=== PATIENT | female | born 2000 | race African-American/Black ===

== ENCOUNTER 2020-02-22 20:45 | Observation (INO) | payer OTHER ==
[~2020-02-22] VITALS: Ht 160 cm; Wt 112.3 kg
[2020-02-22 21:58] LABS: HEMATOCRIT 38.4 % (35.0-45.0); HEMOGLOBIN 11.9 g/dL (12.0-15.0); MEAN CELL VOLUME 74 fl (78-95); MEAN CORPUSCULAR HGB CONC 31 g/dL (33-37); MEAN PLATELET VOLUME 9.6 fl (7.4-10.4); PLATELET COUNT 337 K/mm3 (130-400); RED BLOOD COUNT 5.21 M/mm3 (4.10-5.30); RED CELL DISTRIBUTION WIDTH 14.6 % (11.5-14.5); WHITE BLOOD COUNT 16.1 K/mm3 (4.8-10.8)
[2020-02-22 22:07] LABS: MEAN CORPUSCULAR HEMOGLOBIN 23 pg (26-32)
[2020-02-22 22:11] LABS: ALBUMIN 4.4 g/dL (3.5-5.0); POTASSIUM 4.3 mmol/L (3.5-5.1)
[2020-02-22 22:12] LABS: CALCIUM 9.8 mg/dL (8.3-10.5)
[2020-02-22 22:14] LABS: TOTAL PROTEIN 7.5 g/dL (6.4-8.3)
[2020-02-22 22:15] LABS: TOTAL BILIRUBIN 0.4 mg/dL (0.2-1.2)
[2020-02-22 22:26] LABS: BAND 16 % (0-10); NEUTROPHILS 71 % (42-75)
[2020-02-22 22:27] LABS: LYMPHOCYTE 9 % (20-51); MONOCYTE 4 % (1-10); POLYCHROMASIA 1+
[2020-02-22 22:28] LABS: HYPOCHROMIA 1+; MICROCYTOSIS 2+; OVALOCYTES 1+
[2020-02-22] MEDS ORDERED: TRUE METRIX GL1 EACH (22:33)
[2020-02-22] MEDS ORDERED: GLUCOPHAGE PO (22:34)
[2020-02-22] MEDS ORDERED: SINGULAIR 110 MG/TAB PO (22:35)
[2020-02-22 22:36] LABS: URINE APPEARANCE CLOUDY; URINE BILIRUBIN NEGATIVE (NEGATIVE); URINE BLOOD 50 ery/uL (NEGATIVE); URINE COLOR YELLOW; URINE GLUCOSE NEGATIVE (NEGATIVE); URINE KETONE NEGATIVE (NEGATIVE); URINE LEUKOCYTE ESTERASE 1+ (NEGATIVE); URINE MUCUS PRESENT (NOT PRESENT); URINE NITRATE NEGATIVE (NEGATIVE); URINE PROTEIN(semi-quant) TRACE mg/dL (NEGATIVE); URINE UROBILINOGEN NORMAL (NORMAL)
[2020-02-22] MEDS ORDERED: OXCARBAZEPINE600 M1 PO (22:36)
[2020-02-22] MEDS ORDERED: LOSARTAN POTASS50 M1 PO (22:37)
[2020-02-22 22:39] LABS: LIPASE 27 U/L (8-78)
[2020-02-23] VITALS (7 sets, daily range): BP systolic 109–153; BP diastolic 68–89
[2020-02-23 01:31] LABS: PROTHROMBIN TIME 9.9 SECONDS (9.0-12.0)
[2020-02-23 06:38] LABS: EOS # 0.4 (0.04-0.40); EOS % 3.5 % (0.1-4.0); HEMATOCRIT 34.2 % (35.0-45.0); HEMOGLOBIN 10.3 g/dL (12.0-15.0); MEAN CELL VOLUME 74 fl (78-95); MEAN CORPUSCULAR HGB CONC 30 g/dL (33-37); MEAN PLATELET VOLUME 9.8 fl (7.4-10.4); MONO # 0.8 (0.10-0.60); NEU # 6.8 (1.40-6.50); PLATELET COUNT 339 K/mm3 (130-400); RED BLOOD COUNT 4.61 M/mm3 (4.10-5.30); RED CELL DISTRIBUTION WIDTH 14.6 % (11.5-14.5)
[2020-02-23 07:08] LABS: MEAN CORPUSCULAR HEMOGLOBIN 22 pg (26-32)
[2020-02-23 08:35] LABS: ERYTHROCYTE SEDIMENTATION RATE 23 mm/hr (0-20)
[2020-02-23 09:34] LABS: ALBUMIN 3.8 g/dL (3.5-5.0); POTASSIUM 4.2 mmol/L (3.5-5.1)
[2020-02-23 09:37] LABS: TOTAL PROTEIN 6.6 g/dL (6.4-8.3)
[2020-02-23 09:39] LABS: TOTAL BILIRUBIN 0.3 mg/dL (0.2-1.2)
[2020-02-23 09:42] LABS: CALCIUM 9.3 mg/dL (8.3-10.5)
[2020-02-23 09:49] LABS: DIRECT BILIRUBIN 0.1 mg/dL (0.0-0.5)
[2020-02-23 10:22] LABS: URINE APPEARANCE CLOUDY; URINE BILIRUBIN NEGATIVE (NEGATIVE); URINE BLOOD NEGATIVE (NEGATIVE); URINE COLOR YELLOW; URINE GLUCOSE NEGATIVE (NEGATIVE); URINE KETONE NEGATIVE (NEGATIVE); URINE LEUKOCYTE ESTERASE 1+ (NEGATIVE); URINE MUCUS PRESENT (NOT PRESENT); URINE NITRATE NEGATIVE (NEGATIVE); URINE PROTEIN(semi-quant) 1+ mg/dL (NEGATIVE); URINE UROBILINOGEN NORMAL (NORMAL)
[2020-02-24 01:25] VITALS: BP 116/57
[2020-02-24 05:21] VITALS: BP 140/80
[2020-02-24 09:31] LABS: EOS # 0.5 (0.04-0.40); EOS % 5.1 % (0.1-4.0); HEMATOCRIT 35.2 % (35.0-45.0); HEMOGLOBIN 10.4 g/dL (12.0-15.0); LYMPH# 3.4 (1.20-3.40); MEAN CELL VOLUME 75 fl (78-95); MEAN CORPUSCULAR HGB CONC 30 g/dL (33-37); MEAN PLATELET VOLUME 9.9 fl (7.4-10.4); MONO # 0.4 (0.10-0.60); NEU # 4.7 (1.40-6.50); PLATELET COUNT 295 K/mm3 (130-400); RED BLOOD COUNT 4.68 M/mm3 (4.10-5.30); RED CELL DISTRIBUTION WIDTH 14.8 % (11.5-14.5); WHITE BLOOD COUNT 9.1 K/mm3 (4.8-10.8)
[2020-02-24 09:32] LABS: ALBUMIN 3.9 g/dL (3.5-5.0); POTASSIUM 3.9 mmol/L (3.5-5.1)
[2020-02-24 09:33] LABS: CALCIUM 9.3 mg/dL (8.3-10.5)
[2020-02-24 09:34] LABS: TOTAL PROTEIN 6.7 g/dL (6.4-8.3)
[2020-02-24 09:36] LABS: TOTAL BILIRUBIN 0.2 mg/dL (0.2-1.2)
[2020-02-24 09:48] VITALS: BP 153/96
[2020-02-24 09:50] LABS: MEAN CORPUSCULAR HEMOGLOBIN 22 pg (26-32)
[2020-02-24 14:11] VITALS: BP 151/92
[2020-02-24] MEDS ORDERED: ZOFRAN8 MG PO (17:15)
[2020-02-24] MEDS ORDERED: ROXICODONE5 M1 PO (17:17)
[2020-02-24 18:06] VITALS: BP 153/96
[2020-02-24 19:07] LABS: HEPATITIS C ANTIBODY Negative (Negative)
== END 2020-02-24 18:02 | disposition home or self-care (01) ==
LOC: ED 20:45 → MED/SURG 02-23 00:51
PROVIDERS: Internal Medicine; Nurse Practitioner; ADMIT Family Medicine
DX: R10.30 Lower abdominal pain, unspecified (principal); K76.89 Other specified diseases of liver; E11.9 Type 2 diabetes mellitus without complications; I10 Essential (primary) hypertension; E66.01 Morbid (severe) obesity due to excess calories; D64.9 Anemia, unspecified; R56.9 Unspecified convulsions; Z11.59 Encounter for screening for other viral diseases; Z79.899 Other long term (current) drug therapy; Z79.84 Long term (current) use of oral hypoglycemic drugs
CPT/HCPCS: C9113; G0378; J1885; J2405; J3010; J7030; Q9967

== ENCOUNTER → 2022-06-21 | Outpatient (CLI) | payer OTHER ==
[~2022-06-21] VITALS: Ht 160 cm; Wt 119.7 kg
[~2022-06-21] MED LIST: CLARITIN10 M1 PO; GLUCOPHAGE PO; LOSARTAN POTASS50 M1 PO; OXCARBAZEPINE600 M1 PO; ROXICODONE5 M1 PO; SINGULAIR 110 MG/TAB PO; TRUE METRIX GL1 EACH; VICTOZA 3-0.6 MG/0.1 SQ; ZOFRAN8 MG PO
[2022-06-21 17:31] VITALS: BP 145/90
[2022-06-21 17:53] LABS: HEMATOCRIT 40.1 % (37.0-47.0); HEMOGLOBIN 12.6 g/dL (12.5-16.0); MEAN PLATELET VOLUME 10.8 fl (7.4-10.4); RED BLOOD COUNT 5.44 M/mm3 (4.10-5.30); RED CELL DISTRIBUTION WIDTH 14.1 % (11.5-14.5); WHITE BLOOD COUNT 11.8 K/mm3 (4.8-10.8)
[2022-06-21 18:31] LABS: ALBUMIN 3.9 g/dL (3.5-5.0); POTASSIUM 4.4 mmol/L (3.5-5.1)
[2022-06-21 18:33] LABS: CALCIUM 9.4 mg/dL (8.3-10.5)
[2022-06-21 18:34] LABS: TOTAL PROTEIN 6.9 g/dL (6.4-8.3)
[2022-06-21 18:40] LABS: TOTAL BILIRUBIN 0.1 mg/dL (0.2-1.2)
== END ==
LOC: AMSURD 16:56
PROVIDERS: Physician Assistant
DX: R19.7 Diarrhea, unspecified (principal); R11.10 Vomiting, unspecified
CPT/HCPCS: J2405; J7030

== ENCOUNTER → 2023-06-26 | Outpatient (CLI) | payer OTHER | LOC: RAD 10:21 | DX: M79.675 Pain in left toe(s) (principal) ==

== ENCOUNTER 2024-11-26 14:02 | Emergency (ER) | payer OTHER ==
[~2024-11-26] VITALS: Ht 157.5 cm; Wt 126.4 kg
[2024-11-26] MEDS ORDERED: NS 1,000 ML IV SCH (14:15)
[2024-11-26] MEDS ORDERED: Ondansetron 4 MG/2 ML VIAL IV ONE ×2 (14:15→17:30)
[2024-11-26 14:30] LABS: URINE APPEARANCE CLOUDY (CLEAR); URINE BILIRUBIN NEGATIVE (NEGATIVE); URINE BLOOD 2+ (NEGATIVE); URINE COLOR YELLOW (YELLOW); URINE GLUCOSE 3+ (NEGATIVE); URINE KETONE 2+ (NEGATIVE); URINE LEUKOCYTE ESTERASE NEGATIVE (NEGATIVE); URINE MUCUS PRESENT (NOT PRESENT); URINE NITRATE NEGATIVE (NEGATIVE); URINE PROTEIN(semi-quant) 2+ (NEGATIVE); URINE WBC >50 /hpf (0-3)
[2024-11-26 14:34] LABS: HEMOGLOBIN 12.1 g/dL (12.5-16.0); MEAN CELL VOLUME 73 fl (78-100); MEAN CORPUSCULAR HEMOGLOBIN 23 pg (27-31); MEAN CORPUSCULAR HGB CONC 31 g/dL (33-37); MEAN PLATELET VOLUME 10.7 fl (7.4-10.4); PLATELET COUNT 269 K/mm3 (130-400); RED BLOOD COUNT 5.36 M/mm3 (4.10-5.30); RED CELL DISTRIBUTION WIDTH 13.9 % (11.5-14.5); WHITE BLOOD COUNT 15.8 K/mm3 (4.8-10.8)
[2024-11-26 14:39] LABS: ALBUMIN 4.1 g/dL (3.5-5.0)
[2024-11-26 14:40] LABS: CALCIUM 10.1 mg/dL (8.3-10.5)
[2024-11-26 14:41] LABS: TOTAL PROTEIN 8.2 g/dL (6.4-8.3)
[2024-11-26 14:43] LABS: TOTAL BILIRUBIN 0.5 mg/dL (0.2-1.2)
[2024-11-26 14:51] LABS: LYMPHOCYTE 14 % (20-51); MONOCYTE 6 % (3-10); NEUTROPHILS 80 % (42-75)
[2024-11-26] MEDS ORDERED: cefTRIAXone 1 G in Water For Injection,Sterile 10 ML IV ONE (15:15)
[2024-11-26] MEDS ORDERED: Acetaminophen 500 MG TAB PO ONE (15:30)
[2024-11-26] MEDS ORDERED: NS 100 ML IV ONE (16:11)
[2024-11-26] MEDS ORDERED: Iohexol 300 - 100 ML VIAL IV ONE (16:11)
[2024-11-26] MEDS ORDERED: Ketorolac 30 MG/ML VIAL IV ONE (17:30)
[2024-11-26] MEDS ORDERED: [UNRECOGNIZED DRUG - OTHER] VG ONE (18:30)
[2024-11-26] MEDS ORDERED: MICONAZOLE VG ONE (18:30)
[2024-11-26] MEDS ORDERED: Zinc Oxide 20% Ointment 28 GM TUBE TOP ONE (18:30)
[2024-11-26] MEDS ORDERED: Insulin Human Regular (NovoLIN R) SQ ONE (19:15)
[2024-11-26] MEDS ORDERED: CEPHALEXIN500 M1 PO (19:18)
[2024-11-26] MEDS ORDERED: DIFLUCAN200 M1 PO (19:18)
[2024-11-26 20:45] VITALS: BP 135/73
== END 2024-11-26 20:45 | disposition home or self-care (01) ==
LOC: ED 14:02
PROVIDERS: Nurse Practitioner
DX: N39.0 Urinary tract infection, site not specified (principal); E11.65 Type 2 diabetes mellitus with hyperglycemia; B37.31 Acute candidiasis of vulva and vagina; E66.9 Obesity, unspecified; Z88.0 Allergy status to penicillin; Z79.84 Long term (current) use of oral hypoglycemic drugs
CPT/HCPCS: J0696; J1815; J1885; J2405; J7030; Q9967

== ENCOUNTER 2024-11-28 09:15 | Observation (INO) | payer OTHER ==
[~2024-11-28] VITALS: Ht 157.5 cm; Wt 118.8 kg
[~2024-11-28 09:15] MED LIST changes: +CEPHALEXIN500 M1 PO; +DIFLUCAN200 M1 PO
[2024-11-28] MEDS ORDERED: Miconazole 2% Cream 30 GM TUBE TP ONE (11:00)
[2024-11-28] MEDS ORDERED: fentaNYL 100 MCG/2 ML VIAL IV ONE (11:15)
[2024-11-28 11:37] LABS: BASO # 0.01 K/mm3 (0.02-0.10); HEMATOCRIT 37.5 % (37.0-47.0); HEMOGLOBIN 11.5 g/dL (12.5-16.0); LYMPH# 2.25 K/mm3 (1.50-4.00); MEAN CELL VOLUME 73 fl (78-100); MEAN CORPUSCULAR HEMOGLOBIN 23 pg (27-31); MEAN CORPUSCULAR HGB CONC 31 g/dL (33-37); MEAN PLATELET VOLUME 10.6 fl (7.4-10.4); MONO # 0.77 K/mm3 (0.20-0.80); NEU # 7.46 K/mm3 (1.40-6.50); PLATELET COUNT 268 K/mm3 (130-400); RED BLOOD COUNT 5.12 M/mm3 (4.10-5.30); RED CELL DISTRIBUTION WIDTH 14.2 % (11.5-14.5); WHITE BLOOD COUNT 10.7 K/mm3 (4.8-10.8)
[2024-11-28 11:40] LABS: ALBUMIN 3.8 g/dL (3.5-5.0)
[2024-11-28 11:41] LABS: CALCIUM 9.5 mg/dL (8.3-10.5)
[2024-11-28 11:42] LABS: TOTAL PROTEIN 7.9 g/dL (6.4-8.3)
[2024-11-28 11:44] LABS: TOTAL BILIRUBIN 0.4 mg/dL (0.2-1.2)
[2024-11-28] MEDS ORDERED: Lidocaine 2% (20 MG/ML) 20 ML UROJECT UR ONE (12:13)
[2024-11-28] MEDS ORDERED: Lidocaine 2% Viscous 15 ML UNIT DOSE CUP MM ONE (12:15)
[2024-11-28] MEDS ORDERED: cefTRIAXone 1 G in Water For Injection,Sterile 10 ML IV ONE (12:15)
[2024-11-28] MEDS ORDERED: NS IV SCH (13:30)
[2024-11-28] MEDS ORDERED: ACYCLOVIR IV SCH (13:30)
[2024-11-28 13:55] VITALS: BP 170/93
[2024-11-28] MEDS ORDERED: Acetaminophen 500 MG TAB PO PRN (14:00)
--- NOTE | 2024-11-28 14:10 | NUR ---
PATIENT ADMITED TO ROOM 208 VIA WHEELCHAIR FROM ED. PATIENT IS A&Ox4, STATES PAIN TO VAGINAL/GROIN AREA, DENIES N/V OR SOB. PATIENT HAS YIN CATHETER DUE TO URINARY RETENTION, URINE COLOR IS ORANGE DUE TO PATIENT TAKING AZO. PATIENT HAS 22G INT TO L HAND. PATIENT IS STANDBY ASSIT WITH NO DEVICE. DENIES OTHER NEEDS OR COMPLAINTS AT THIS TIME. CALL LIGHT WITHIN REACH
[2024-11-28] MEDS ORDERED: HYDROcodone/Acetaminophen 7.5-325 MG TAB PO PRN (16:15)
--- NOTE | 2024-11-28 16:30 | NUR ---
PATIENT MOTHER INTO SEE PATIENT. PATIENT GAVE STAFF PERMISSION TO SPEAK WITH MOTHER ABOUT HER CARE. MOTHER'S NAME IS JODIE [phone]. MAY CALL MOTHER IF ANYTHING IS NEEDED.
[2024-11-28] MEDS ORDERED: OXcarbazepine 150 MG TAB PO SCH ×2 (18:33→21:00)
[2024-11-28] MEDS ORDERED: Doxycycline Monohydrate 100 MG CAP PO SCH (19:00)
--- NOTE | 2024-11-28 19:08 | NUR ---
REPORT GIVEN TO REID ANGUIANO
[2024-11-28] MEDS ORDERED: TRILEPTAL600 M1 PO (19:19)
[2024-11-28 19:20] VITALS: BP 145/81
[2024-11-28] MEDS ORDERED: metFORMIN 500 MG TAB PO SCH (21:00)
[2024-11-28] MEDS ORDERED: BETAMETHASONE TP SCH (21:00)
[2024-11-28] MEDS ORDERED: CLOTRIMAZOLE TP SCH (21:00)
[2024-11-28] MEDS ORDERED: Insulin Lispro (HumaLOG) SQ SCH (21:00)
[2024-11-28] MEDS ORDERED: metroNIDAZOLE 250 MG TABLET PO SCH (21:00)
--- NOTE | 2024-11-28 21:37 | NUR ---
PT RESTING QUIETLY IN BED WATCHING TELEVISION. DENIES PAIN. LUNGS CLEAR. ABD SOFT AND NON TENDER. YIN INTACT AND DRAINING DEPENDENTLY.
[2024-11-29 07:04] VITALS: BP 123/73
[2024-11-29] MEDS ORDERED: metFORMIN 500 MG TAB PO SCH (08:00)
[2024-11-29] MEDS ORDERED: Loratadine 10 MG TAB PO SCH (09:00)
[2024-11-29] MEDS ORDERED: cefTRIAXone 1 G in Water For Injection,Sterile 10 ML IV SCH (12:00)
--- NOTE | 2024-11-29 19:13 | NUR ---
RECEIVED REPORT FROM REID HYDE
[2024-11-29 19:15] VITALS: BP 125/83
--- NOTE | 2024-11-29 22:00 | NUR ---
PATIENT IN BED ON ASSESS. A&O X 4. EENT CLEAR, LUNGS CTA, HR REG, BS X 4, PATIENT DENIES BM SINCE ADMIT. INITIALLY ON ASSESS DENIES PAIN, BUT LATER AT 2129 REQUESTING MEDS FOR PAIN 07/24. PRN GIVEN. CONTINUES WITH FOELY TO DD, URINE CLEAR YELLOW. USES CALL SYSTEM APPROPRITELY
--- NOTE | 2024-11-30 00:48 | NUR ---
PATIENT RESTING QUIETLY IN BED. BREATHING UNLABORED ON RA. CALL LIGHT IN REACH
--- NOTE | 2024-11-30 03:07 | NUR ---
PATIENT RESTING QUIETLY IN BED. DENIES PAIN OR NEEDS AT THIS TIME. CALL LIGHT IN REACH
--- NOTE | 2024-11-30 05:15 | NUR ---
PATIENT CALLED FOR PAIN MEDS. RATES PAIN 10/10 TO GROIN.
[2024-11-30 08:33] VITALS: BP 132/84; BP_SYST 84
[2024-11-30] MEDS ORDERED: Ketorolac 30 MG/ML VIAL IV ONE (10:15)
[2024-11-30] MEDS ORDERED: Insulin Lispro (HumaLOG) SQ SCH (12:00)
--- NOTE | 2024-11-30 14:10 | NUR ---
PT RESTING ON BED. PTS FAMILY IS IN THE ROOM. PT REPORTS A NUMERIC PAIN SCALE OF 10 AT ANY TIME THIS NURSE CONDUCTS A PAIN ASSESSMENT.
[2024-11-30] MEDS ORDERED: Ibuprofen 200 MG TAB PO SCH (17:00)
[2024-11-30 17:01] VITALS: BP 120/81
--- NOTE | 2024-11-30 17:02 | NUR ---
THIS NURSE HAS MONITORING PTS OUTPUT AND ENCOURAGING FLUIDS THROUGHOUT THE DAY. PT HAS HAD AN INTAKE OF 2000-2400ML OF FLUIDS. PT HAS HAD A TOTAL OF 45 MLS OUTPUT AT 1300. THIS NURSE AND PCT KARI BLADDER SCANNED THE PT. BLADDER SCAN RESULTED IN 15-27MLS. THIS NURSE FLUSHED PTS YIN WITH 80MLS OF STERILE WATER. 80MLS RETURNED TO YIN BAG. PTS URINE IS DISCOLORED DUE TO PATIENTS MEDICATION PHENAZOPYRIDINE. THIS NURSE NOTIFIED HARVEY MUNSON.
[2024-11-30] MEDS ORDERED: NS 1,000 ML IV SCH (17:15)
[2024-11-30 19:36] LABS: ALBUMIN 3.3 g/dL (3.5-5.0); HEMATOCRIT 33.7 % (37.0-47.0); MEAN CELL VOLUME 76 fl (78-100); MEAN CORPUSCULAR HEMOGLOBIN 23 pg (27-31); MEAN CORPUSCULAR HGB CONC 30 g/dL (33-37); MEAN PLATELET VOLUME 10.6 fl (7.4-10.4); PLATELET COUNT 334 K/mm3 (130-400); RED BLOOD COUNT 4.44 M/mm3 (4.10-5.30); RED CELL DISTRIBUTION WIDTH 14.8 % (11.5-14.5); WHITE BLOOD COUNT 10.8 K/mm3 (4.8-10.8)
[2024-11-30 19:38] LABS: CALCIUM 9.3 mg/dL (8.3-10.5)
[2024-11-30 19:41] LABS: TOTAL BILIRUBIN 0.2 mg/dL (0.2-1.2)
[2024-11-30 19:53] VITALS: BP 134/83
[2024-11-30 20:38] LABS: BAND 8 % (0-10); LYMPHOCYTE 20 % (20-51); METAMYELOCYTE 3 % (0-0); MONOCYTE 6 % (3-10); MYELOCYTE 2 % (0-0); NEUTROPHILS 53 % (42-75)
[2024-11-30 20:46] LABS: POLYCHROMASIA 1+
[2024-11-30 20:47] LABS: MICROCYTOSIS 1+
[2024-11-30 20:49] LABS: TOXIC GRANULATION PRESENT
--- NOTE | 2024-11-30 23:03 | NUR ---
PT RESTING IN BED. APPEARS UNCOMFORTABLE AND COMPLAINING THAT IT IS HOT. BRIEF CHANGED, FAN SUPPLIED AND PAIN MEDS GIVEN. ABLE TO ROLL INDEPENDENTLY. GCS 15. REPORTS SOME SOB AND ALL OVER BODY PAIN.
[2024-12-01 07:24] LABS: BASO # 0.02 K/mm3 (0.02-0.10); EOS # 0.05 K/mm3 (0.04-0.40); EOS % 0.5 % (1.0-5.0); HEMATOCRIT 34.1 % (37.0-47.0); HEMOGLOBIN 10.2 g/dL (12.5-16.0); LYMPH# 3.11 K/mm3 (1.50-4.00); MEAN CELL VOLUME 76 fl (78-100); MEAN CORPUSCULAR HEMOGLOBIN 23 pg (27-31); MEAN CORPUSCULAR HGB CONC 30 g/dL (33-37); MEAN PLATELET VOLUME 10.1 fl (7.4-10.4); MONO # 0.48 K/mm3 (0.20-0.80); NEU # 5.66 K/mm3 (1.40-6.50); PLATELET COUNT 342 K/mm3 (130-400); RED BLOOD COUNT 4.51 M/mm3 (4.10-5.30); RED CELL DISTRIBUTION WIDTH 14.8 % (11.5-14.5); WHITE BLOOD COUNT 10.2 K/mm3 (4.8-10.8)
[2024-12-01 07:30] VITALS: BP 121/85
[2024-12-01 07:30] LABS: ALBUMIN 3.4 g/dL (3.5-5.0)
[2024-12-01 07:31] LABS: CALCIUM 9.5 mg/dL (8.3-10.5)
[2024-12-01 07:32] LABS: TOTAL PROTEIN 7.3 g/dL (6.4-8.3)
[2024-12-01 07:34] LABS: TOTAL BILIRUBIN 0.2 mg/dL (0.2-1.2)
[2024-12-01] MEDS ORDERED: Sennosides/Docusate 8.6-50 MG TAB PO ONE (07:45)
[2024-12-01] MEDS ORDERED: CEFDINIR300 MG PO (07:53)
[2024-12-01] MEDS ORDERED: DOXYCYCLINE MO100 M3 PO (07:58)
[2024-12-01] MEDS ORDERED: BETAMETHASONE D1 CR2 TP (07:59)
[2024-12-01] MEDS ORDERED: ZOVIRAX400 MG PO (07:59)
[2024-12-01] MEDS ORDERED: ZOFRAN ODT4 MG PO (08:00)
[2024-12-01] MEDS ORDERED: IBU600 MG PO (08:01)
--- NOTE | 2024-12-01 08:53 | NUR ---
DICUSSED DISCHARGE PLANS WITH PT AND FOLLOW UP NEEDS. SHE REPORTS SHE FOLLOWS AT [facility]. APPT MADE FOR FOLLOW. PT WOULD LIKE MEDS SENT TO [facility] [address]. PT DENIES ANY OTHER NEEDS AT THIS TIME
[2024-12-01] MEDS ORDERED: Cefdinir 300 MG CAP PO SCH (09:00)
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
[2024-12-01] MEDS ORDERED: Lidocaine 2% Jelly 5 GM TUBE TOP ONE (16:30)
--- NOTE | 2024-12-01 17:00 | NUR ---
Pt unable to void after barrios discontinued. Initially pt refused to get OOB to sit on toilet. Stated that she had no urge to urinate. Bladder scan revealed 971ml fluid in bladder. Assisted pt to sit on toilet, 3-4 gtts to hat. Unable to confirm if urine or discharge. Pt states that she cannot urinate saying "it's going to hurt." Replaced barrios, attempts x 2. Pt did not tolerate well. Used lidocaine topical gel with second attempt and pt mother assisted to hold pt down. Placed 16F catheter, orange/yellow urine to dependant drainage bag. Provided education for cleaning yi area and emptying drainage bag. Provided minimal pericare that pt would allow.
--- NOTE | 2024-12-01 18:43 | NUR ---
Discussed discharge instructions with pt and mother. Both acknowledge understanding. Provided pt teaching r/t catheter care and pericare. Notified that [facility] would call to make appt but included name and phone number for pt f/u. Pt mother picked up new meds at [facility], pt instructed that she should take each abx and antiviral this evening then continue each medication as prescribed. IV discontinued complete/intact. Berger catheter with orange urine to dependant drainage bag intact. Pt dresses self, escorted from facility via WC.
== END 2024-12-01 18:43 | disposition home or self-care (01) ==
LOC: ED 09:15 → MED/SURG 12:10
PROVIDERS: Family Medicine; ADMIT Physician Assistant
DX: N76.0 Acute vaginitis (principal); B37.9 Candidiasis, unspecified; R34 Anuria and oliguria; N39.0 Urinary tract infection, site not specified; E11.9 Type 2 diabetes mellitus without complications; J30.2 Other seasonal allergic rhinitis; F44.5 Conversion disorder with seizures or convulsions; Z79.84 Long term (current) use of oral hypoglycemic drugs
CPT/HCPCS: A4314; A6240; A9270; G0378; J0696; J1815; J1885; J3010; J7030; J7120